=== PATIENT | male | born 1950 | race Two or more races ===

== ENCOUNTER 2017-03-23 16:00 | Emergency (ER) | payer MEDICAID ==
[2017-03-23 16:10] VITALS: PULSE 84; TEMP 98.6
--- NOTE | 2017-03-23 17:14 | EDPHY ---
HPI/HX/ROS/PE/MDM Narrative: CHIEF COMPLAINT: Flu-like symptoms HISTORY OF PRESENT ILLNESS: This patient is a 66 year old male complaining of flu-like symptoms beginning Thursday, three days ago. Today, he complains of headache, pain in his left ribs and back. He feels mildly short of breath. He denies history of asthma or emphysema. He does have history of a fractured rib on the left and fractured left arm in the past. This area is particularly painful when he coughs, but not with deep inspiration. He has taken Tylenol and Robitussin, but these have not relieved his symptoms. No palpitations, vomiting, diarrhea, urinary complaints, lightheadedness. HPI obtained primarily through farm product purchaser at bedside. REVIEW OF SYSTEMS: Aside from elements discussed in the HPI, a comprehensive 10-point review of systems was reviewed and is negative. PAST MEDICAL HISTORY: Skin cancer, Hypothyroid, GERD SOCIAL HISTORY: Danish-speaking. Former smoker. No alcohol use. VITAL SIGNS: Reviewed by me GENERAL: Well-developed, well-nourished, resting comfortably in no respiratory distress. HEENT: Atraumatic. Eyes: No icterus, no injection. Mouth: moist mucous membranes. No erythema or lesions. Neck: supple with no adenopathy. LUNGS: Clear to auscultation bilaterally, no wheezes, rhonchi or rales. No chest wall tenderness. No crepitus. CARDIAC: Regular rate and rhythm, no rubs, murmurs or gallops. ABDOMEN: Soft, nontender, nondistended, bowel sounds normal. BACK: No CVA tenderness. EXTREMITIES: No trauma. No edema. Range of motion is normal throughout. NEURO: Alert and oriented, grossly nonfocal. SKIN: Warm and dry, no rash. PSYCHIATRIC: Normal mentation, no agitation. Portions of this note were transcribed by a lpn or medical assistant. I personally performed a history, physical exam, medical decision making, and confirmed accuracy of information the transcribed note. ED Course: 66 y/o male presents with flu-like symptoms beginning Thursday, two days ago. Plan for flu swab. Discussed chest x-ray, which the patient declines as he "knows he has fractured rib". His lungs are clear to auscultation. He is not tachycardic, tachypneic, or hypoxic. Patient is positive for Influenza B. Plan to administer Tamiflu. I discussed that this medication may make symptoms less severe and of shorter duration, but he may not feel better right away and there is no cure for influenza. He will continue to take Tylenol for pain and fever reduction. Plan to discharge home in good condition with prescription for Tamiflu and Tessalon Pearles for symptom relief. Follow up and return precautions discussed. He is comfortable with this plan. MDM: Differential diagnosis for the patient's cough was considered including but not limited to influenza, pneumonia, viral versus bacterial bronchitis, asthma, COPD , pulmonary emboli, upper respiratory infection, lower respiratory infection, and bronchospasm. - Data Points Laboratory Results: 03/23/17 16:10 Nasal Influenza A PCR NEGATIVE FOR FLU A (NEGATIVE) Nasal Influenza B PCR FLU B DETECTED H (NEGATIVE) General Time Seen by Provider: 03/23/17 17:11 Initial Vital Signs: Initial Vital Signs Temperature (C) 37 C 03/23/17 16:04 Heart Rate 84 03/23/17 16:04 Respiratory Rate 18 03/23/17 16:04 Blood Pressure 127/90 H 03/23/17 16:04 O2 Sat (%) 96 03/23/17 16:04 O2 Delivery Mode Room Air Allergies/Adverse Reactions: levaquin? Allergy (Unknown, Uncoded 03/23/17 16:14) Home Medications: Medication Instructions Recorded Benzonatate [Tessalon Pearles (RX)] 100 mg PO TID PRN #20 cap 03/23/17 Cyclobenzaprine [Flexeril 10 MG 10 mg PO 03/23/17 (*)] Omeprazole [Prilosec 20 mg] 20 mg PO DAILY 03/23/17 Oseltamivir Phosphate [Tamiflu 75 75 mg PO BID #10 cap 03/23/17 mg (*)] Thyroid Med 03/23/17 Departure - Departure Disposition: Home, Routine, Self-Care Clinical Impression: Influenza B Condition: Good Instructions: Influenza (ED), Acute Cough (ED) Additional Instructions: Use Tylenol 650mg every 4-6 hours as needed for fever and body aches. Take Tessalon Pearles as prescribed as needed for cough. Take Tamiflu as prescribed. Follow up with your primary care physician within 2-3 days for reevaluation. Drink plenty of fluids. Return to the emergency department for high fever, severe headache or neck pain , difficulty breathing, abdominal pain, rash or other worsening of condition. --------- Use Tylenol 650mg cada 4-6 horas cuando lo necesite por fiebre y dolor de cuerpo. [place] Tessalon Pearles shirley se le fue recetado cuando lo necesite para la tos. [place] Tamiflu shirley se le fue recetado. Kentrell dominik rich de seguimiento con tabares doctor de ariannaecera dentro de 2-3 martinez para ser revisado de nuevo. [place] bastantes lquidos. Regrese a la augustin de emergencias por fiebre lucia, dolor de corine severa o dolor de francia, dificultad al respirar, dolor abdominal, sarpullido o otro empeoramiento de tabares condicin. Referrals: Jocy Murphy MD [Medical Doctor] - As per Instructions [facility],. [Clinic] - As per Instructions Prescriptions: Benzonatate [Tessalon Pearles (RX)] 100 mg PO TID PRN #20 cap PRN Reason: Cough, Mild Oseltamivir Phosphate [Tamiflu 75 mg (*)] 75 mg PO BID #10 cap Report Scribed for: Grace Almodovar Report Scribed by: Juhi Grady Date of Report: 03/23/17 Time of Report: 17:14
[2017-03-23 18:18] VITALS: BP 132/81; RESP 16; O2SAT 94
== END 2017-03-23 18:18 | disposition home or self-care (01) ==
DX: J10.1 Influenza due to other identified influenza virus with other respiratory manifestations (principal); Z87.891 Personal history of nicotine dependence; Z85.828 Personal history of other malignant neoplasm of skin

== ENCOUNTER 2017-04-30 10:08 | Emergency (ER) | payer MEDICAID ==
[2017-04-30 10:22] VITALS: RESP 17; TEMP 98.1
--- NOTE | 2017-04-30 10:54 | EDPHY ---
H & P Time Seen by Provider: 04/30/17 10:27 HPI/ROS: CHIEF COMPLAINT: Right ankle and right foot pain 2 weeks HISTORY OF PRESENT ILLNESS: 66-year-old male took the bus to the ER complaining of right ankle and right foot pain for the past 2 weeks after he rolled his foot a walking on grass. He is able to bear weight albeit with pain. Intact skin. No fetid odor. No fall from height. PHYSICAL EXAM (Prior to examination, patient consented to physical exam, hands were washed and my usual and customary physical exam procedures followed) 1) GENERAL: Well-developed, well-nourished, alert and oriented. Appears to be in no acute distress. 2) HEAD: Normocephalic 3) HEENT: Pupils equal, round, reactive to light bilaterally. 4) LUNGS: Breathing comfortably. 5) MUSCULOSKELETAL: Tender to palpation right medial ankle, tender to palpation right 1st MTP. No visible or palpable deformities either location. No crepitus. No signs of infection. Normal color normal temperature. proximal tibia and fibula nontender . fibular head nontender..5th MT nontender negative Yadav test, compartments soft 6) SKIN: Intact 7) VASCULAR: DP,PT pulses and cap refill present and brisk DIFFERENTIAL DIAGNOSIS: in no particular order including but not limited to fracture, sprain, compartment syndrome Procedure: Splint A Hana boot splint was applied by ER telegraph repeater technician. After application of the splint I returned and re-examined the patient. The splint was adequately immobilizing the joint and distal to the splint the patient's circulation and sensation were intact. Patient shows no signs of compartment syndrome. Was given orthopedic precautions. Smoking Status: Former smoker Constitutional: Initial Vital Signs Temperature (C) 36.7 C 04/30/17 10:20 Heart Rate 75 04/30/17 10:20 Respiratory Rate 17 04/30/17 10:20 Blood Pressure 139/94 H 04/30/17 10:20 O2 Sat (%) 96 04/30/17 10:20 O2 Delivery Mode Room Air Allergies/Adverse Reactions: levaquin? Allergy (Unknown, Uncoded 04/30/17 10:17) Home Medications: Medication Instructions Recorded Benzonatate [Tessalon Pearles (RX)] 100 mg PO TID PRN #20 cap 03/23/17 Cyclobenzaprine [Flexeril 10 MG 10 mg PO 03/23/17 (*)] Omeprazole [Prilosec 20 mg] 20 mg PO DAILY 03/23/17 Levothyroxine 04/30/17 MDM/Departure - MDM Imaging Results: Imaging Impressions Ankle X-Ray 04/30/17 10:40 Impression: Nothing acute identified. 2. Right Foot , 3 views History:Pain in first ray, post trauma today. Findings: No fracture or dislocation is identified. Overall mineralization is normal. Impression: Nothing acute identified. Foot X-Ray 04/30/17 10:40 Impression: Nothing acute identified. 2. Right Foot , 3 views History:Pain in first ray, post trauma today. Findings: No fracture or dislocation is identified. Overall mineralization is normal. Impression: Nothing acute identified. Images reviewed myself - Depart Disposition: Home, Routine, Self-Care Clinical Impression: Foot pain, right Ankle sprain Qualifiers: Encounter type: initial encounter Involved ligament of ankle: other ligament Laterality: right Qualified Code(s): S93.491A - Sprain of other ligament of right ankle, initial encounter Condition: Good Instructions: Ankle Sprain (ED), Foot Sprain (ED) Additional Instructions: Return to the ER immediately if you experience discoloration, have worsening pain, numbness, tingling, or any other symptoms that concern you. If you received x-rays in the emergency department today, be advised, that ligamentous , tendon, muscular, and other non-bony injury cannot be fully ruled out. Try to keep your affected extremity elevated above the level of your chest, and keep cold packs on the affected area, for the next 48 hours. Ortopedia Regrese a la augustin de emergencia de inmediato si siente dolor nuevo o que empeora , descoloracin, entumecimiento, cosquilleo u otros sntomas que le preocupan. Referrals: Tonja García PAC [Primary Care Provider] - As per Instructions Roger Pelayo MD [Medical Doctor] - 5-7 days, call for appt.
[2017-04-30 11:57] VITALS: BP 137/89; PULSE 85; O2SAT 95
== END 2017-04-30 11:57 | disposition home or self-care (01) ==
DX: S93.491A Sprain of other ligament of right ankle, initial encounter (principal); S99.921A Unspecified injury of right foot, initial encounter; Z87.891 Personal history of nicotine dependence; X58.XXXA Exposure to other specified factors, initial encounter
CPT/HCPCS: L4386

== ENCOUNTER 2017-11-16 09:53 | Emergency (ER) | payer MEDICAID ==
--- NOTE | 2017-11-16 10:56 | EDPHY ---
H & P Time Seen by Provider: 11/16/17 10:22 HPI/ROS: CHIEF COMPLAINT: Discoloration to the glans of penis times 4 days HISTORY OF PRESENT ILLNESS: 67-year-old immunocompetent male, uncircumcised, complaining of 4 days of discoloration to the glans of the penis, itching, slight erythematous appearance, white discharge, dysuria. No increased frequency. No back or flank pain. No perineal pain. No pain with defecation. No fever no chills. No polyuria or polydipsia. PRIMARY CARE PROVIDER: [facility] REVIEW OF SYSTEMS: 10 systems reviewed and are negative with exception of illness mentioned in the history of present illness Past medical history: Hypothyroid. Pre diabetes. Social history: Nonsmoker PHYSICAL EXAM (Prior to examination, patient consented to physical exam, hands were washed and my usual and customary physical exam procedures followed) 1) GENERAL: Well-developed, well-nourished, alert and oriented. Appears to be in no acute distress. 2) HEAD: Normocephalic, atraumatic 3) HEENT: Pupils equal, round, reactive to light bilaterally. Sclera anicteric. 4) NECK: Full range of motion, no meningeal signs. 5) LUNGS: Clear auscultation bilaterally, no wheezes, no rhonchi, no retractions. 6) HEART: Regular rate and rhythm, no murmur, no heave, no gallop. 7) ABDOMEN: No guarding, no rebound, no focal tenderness, negative McBurney's, negative Barreto's, negative Rovsing's, negative peritoneal sign, 8) MUSCULOSKELETAL: Moving all extremities, no focal areas of tenderness, no obvious trauma. No peripheral edema or discoloration. 9) BACK: No CVA tenderness, no midline vertebral tenderness, no fluctuance, no step-off, no obvious trauma, no visual or palpable abnormality. 10) SKIN: No rash, no petechiae. 11) the : Uncircumcised. The foreskin is retracted. Glans of penis has a strawberry appearance with white smegma. There is no urethral discharge. The scrotum testicles are nontender with normal coloration to the scrotum with no evidence of cellulitis or Brittney's gangrene. Perineal examination unremarkable with no perineal pain or crepitus. DIFFERENTIAL DIAGNOSIS: In no particular include but limited to candidal balanitis, UTI, Brittney's gangrene Smoking Status: Former smoker Constitutional: Initial Vital Signs Temperature (C) 36.7 C 11/16/17 09:58 Heart Rate 75 11/16/17 09:58 Respiratory Rate 16 11/16/17 09:58 Blood Pressure 136/81 H 11/16/17 09:58 O2 Sat (%) 96 11/16/17 09:58 O2 Delivery Mode Room Air Allergies/Adverse Reactions: levaquin? Allergy (Unknown, Uncoded 04/30/17 10:17) Home Medications: Medication Instructions Recorded Benzonatate [Tessalon Pearles (RX)] 100 mg PO TID PRN #20 cap 03/23/17 Cyclobenzaprine [Flexeril 10 MG 10 mg PO 03/23/17 (*)] Omeprazole [Prilosec 20 mg] 20 mg PO DAILY 03/23/17 Levothyroxine 04/30/17 Nystatin [Mycostatin Cream (RX)] 1 pricila TP BID #30 g 11/16/17 metFORMIN HCL [Metformin HCl] 500 mg PO BID #30 tablet 11/16/17 MDM/Departure - [facility] ED Course/Re-evaluation: 10:30 a.m.: Clinical exam findings consistent with candidal balanitis. We discussed penile health and cleaning. We discussed application of topical antifungal medication. He denies history of diabetes. Will obtain urinalysis 11:05 a.m.: Urinalysis positive for 3+ glucose. Patient denies known history of diabetes. Will obtain further serum studies. 12:26 p.m.: Patient noted to have a serum glucose of 265, normal anion gap, no serum ketones. Doubt DKA. I do not think that hospitalization is indicated. Phone consultation with Dr. Amilcar Swartz at [facility] recommends initiation on metformin 500 mg twice daily and the patient will follow up in the clinic for further diagnostic studies. - Depart Disposition: Home, Routine, Self-Care Clinical Impression: Candidal balanitis, Diabetes Condition: Good Instructions: Nystatin (On the skin), Metformin (By mouth), Type 2 Diabetes in Adults: New Diagnosis (ED), Balanitis (ED) Additional Instructions: Return to the ER if you of new or worsening symptoms. Regresar a la augustin de Emergencia para nuevo u empeoramiento de sintomas. Prescriptions: metFORMIN HCL [Metformin HCl] 500 mg PO BID #30 tablet Nystatin [Mycostatin Cream (RX)] 1 pricila TP BID #30 g Referrals: Tonja García, PAC [Primary Care Provider] - 5-7 days, call for appt.
[2017-11-16 11:33] LABS: PLATELET COUNT 257 10^3/uL (150-400)
[2017-11-16 13:10] VITALS: BP 131/69
== END 2017-11-16 13:09 | disposition home or self-care (01) ==
DX: B37.42 Candidal balanitis (principal); E03.9 Hypothyroidism, unspecified; R73.03 Prediabetes; Z87.891 Personal history of nicotine dependence